=== PATIENT | female | born 1935 | race Caucasian/White ===

== ENCOUNTER → 2017-09-11 | Outpatient (CLI) | payer MEDICARE, BC ==
--- NOTE | 2017-09-15 08:26 | MM ---
Reason for exam: screening (asymptomatic). Last mammogram was performed 1 year ago. History: Patient is postmenopausal and has history of ovarian cancer at age 42. Right Breast Aspiration of the right breast, April 23, 2013. Benign excisional biopsy of the left breast, 1977. Physical Findings: A clinical breast exam by your physician is recommended on an annual basis and results should be correlated with mammographic findings. MG 3D Screening Mammo W/Cad Bilateral CC and MLO view(s) were taken. Prior study comparison: September 09, 2016, bilateral MG 3d screening mammo w/cad. September 05, 2015, bilateral MG screening mammo w CAD. The breast tissue is heterogeneously dense. This may lower the sensitivity of mammography. Previous mammotome biopsy in the right breast. No significant changes when compared with prior studies. ASSESSMENT: Benign, BI-RAD 2 RECOMMENDATION: Routine screening mammogram of both breasts in 1 year.
== END | disposition home or self-care (01) ==
LOC: RADMAMWWP 12:59
PROVIDERS: ATTEND Family Medicine
DX: Z12.31 Encounter for screening mammogram for malignant neoplasm of breast (principal)
CPT/HCPCS: 77063; G0202

== ENCOUNTER → 2018-09-14 | Outpatient (CLI) | payer MEDICARE, BC ==
--- NOTE | 2018-09-16 09:53 | MM ---
Reason for exam: screening (asymptomatic). Last mammogram was performed 1 year ago. History: Patient is postmenopausal and has history of ovarian cancer at age 42. Right Breast Aspiration of the right breast, April 23, 2013. Benign excisional biopsy of the left breast, 1977. Physical Findings: A clinical breast exam by your physician is recommended on an annual basis and results should be correlated with mammographic findings. MG 3D Screening Mammo W/Cad Bilateral CC and MLO view(s) were taken. Prior study comparison: September 11, 2017, bilateral MG 3d screening mammo w/cad. September 09, 2016, bilateral MG 3d screening mammo w/cad. The breast tissue is heterogeneously dense. This may lower the sensitivity of mammography. There is a stable left upper outer quadrant mass back to 2016. Benign appearing bilateral calcifications. Right biopsy marker noted. ASSESSMENT: Benign, BI-RAD 2 RECOMMENDATION: Routine screening mammogram of both breasts in 1 year.
== END | disposition home or self-care (01) ==
LOC: RADMAMWWP 12:38
PROVIDERS: ATTEND Family Medicine
DX: Z12.31 Encounter for screening mammogram for malignant neoplasm of breast (principal)
CPT/HCPCS: 77063; 77067

== ENCOUNTER 2022-12-20 09:30 | Emergency (ER) | payer MEDICARE, BC ==
[2022-12-20 09:36] VITALS: RESP 18
[2022-12-20] MEDS ORDERED: diphenhydrAMINE 50 MG/ML 1 ML VIAL IVP STA (10:22)
[2022-12-20] MEDS ORDERED: methylPREDNISolone SOD SUCCI 125 MG/2 ML VIAL IV STA (10:22)
[2022-12-20] MEDS ORDERED: FAMOTIDINE 20 MG/2 ML VIAL IV STA (10:22)
[2022-12-20 10:24] LABS: Amorphous Sediment,Urine Rare /hpf; Appearance,Urine Cloudy (Clear); Bacteria,Urine Rare /hpf; Bilirubin,Urine Negative (Negative); Blood,Urine Small (Negative); Color,Urine Light Yellow; Glucose,Urine (UA) Negative (Negative); Ketones,Urine Negative (Negative); Leukocyte Esterase,Urine Large (Negative); Mucus,Urine Rare /hpf; Nitrite,Urine Negative (Negative); PH, Urine 6.5 (5.0-8.0); Protein,Urine Trace (Negative); RBC,Urine 47 /hpf (0-5); Specific Gravity,Urine 1.014 (1.001-1.035); Squamous Epithelial Cell,Urine <1 /hpf (0-4); Urobilinogen,Urine <2.0 mg/dL (<2.0); WBC,Urine 59 /hpf (0-5)
[2022-12-20] MEDS ORDERED: TRIAMCINOLONE 0.1% CREAM 80 GM TUBE TOPICAL ONE (10:30)
--- NOTE | 2022-12-20 10:37 | ED ---
Recheck HPI - General Chief Complaint: Urogenital Stated Complaint: painful urination, back pain Time Seen by Provider: 12/20/22 09:56 Source: patient, RN notes reviewed Mode of arrival: ambulatory Limitations: no limitations - History of Present Illness Initial Comments: This is a 87-year-old female who presents to the emergency department for itching and burning with urination. States that starting yesterday, she has noticed significant itching to her back and her head. She is unable to see her back. She has tried washing it with no relief. Denies any new soaps or detergents. Also denies the concern for any bedbugs. She lives at [facility], and states that there have not been any noted infestations. Also denies any new soaps or detergents. She has not taken anything such as Benadryl to treat her symptoms. Additionally, she noticed blood in her urine last night which has since resolved and she has associated burning with urination. Denies any abdominal pain or back pain. She has also not noted any fevers. Denies any fevers, chills, sore throat, cough, dyspnea, chest pain, palpitations, abdominal pain, nausea, vomiting, diarrhea, back pain, or headaches. - Related Data Home Medications Medication Instructions Recorded Confirmed Latanoprost [Latanoprost 0.005%] 1 drop BOTH EYES HS 12/20/22 12/20/22 Levothyroxine Sodium [Synthroid] 50 mcg PO DAILY 12/20/22 12/20/22 Previous Rx's Medication Instructions Recorded Cephalexin [Keflex] 500 mg PO Q8HR 7 Days #21 cap 12/20/22 predniSONE 50 mg PO DAILY 5 Days #5 tab 12/20/22 Allergies Allergy/AdvReac Type Severity Reaction Status Date / Time oxycodone HCl Allergy Itching Verified 12/20/22 11:44 [From OxyContin] Penicillins Allergy Unknown Verified 12/20/22 11:44 Review of Systems ROS Statement: Those systems with pertinent positive or pertinent negative responses have been documented in the HPI. ROS Other: All systems not noted in ROS Statement are negative. 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 Absent: respiratory distress, wheezes, rales, rhonchi, stridor Cardiovascular Exam: Present: regular rate, normal rhythm, normal heart sounds. Absent: systolic murmur, diastolic murmur, rubs, gallop, clicks GI/Abdominal exam: Present: soft, normal bowel sounds. Absent: distended, tenderness Neurological exam: Present: alert, oriented X3, CN II-XII intact Psychiatric exam: Present: normal affect, normal mood Skin exam: Present: other (Multiple excoriated papular lesions on the back. No notable lesions on the head, neck, or behind the ears.) Course Vital Signs 12/20/22 12/20/22 09:31 12:30 Temperature 97.5 F L 97.9 F Pulse Rate 65 66 Respiratory 18 18 Rate Blood Pressure 170/65 158/72 O2 Sat by Pulse 99 100 Oximetry Medical Decision Making - Medical Decision Making This is an 87-year-old female who presents to the emergency department for itching and dysuria. Was pt. sent in by a medical professional or institution? @ -No Did you speak to anyone other than the patient for history? @ -No Did you review nursing and triage notes? @ -Yes, and I agree, it is accurate with regards to the patient's symptoms. Were old charts reviewed? @ -No Differential Diagnosis? @ -Differential Itching: insect bites, atopic dermatitis, contact dermatitis, herpes zoster, this is not meant to be an all-inclusive list. -Differential Dysuria: UTI, pyelonephritis, ureteral calculus, nephrolithiasis, urethral injury, bladde r cancer, this is not meant to be an all-inclusive list. What testing was considered but not performed? (CT, X-rays, U/S, labs)? Why? @ -None What meds were considered but not given? Why? @ -None Did you discuss the management of the patient with other professionals? @ -No Did you reconcile home meds? @ -No Was smoking cessation discussed for >3mins.? @ -No Was critical care preformed (if so, how long)? @ -No Were there social determinants of health that impacted care today? How? (Homelessness, low income, unemployed, alcoholism, drug addiction, tr ansportation, low edu. Level, literacy, decrease access to med. care, usp, rehab)? @ -No Was there de-escalation of care discussed even if they declined? (Discuss DNR or withdrawal of care, Hospice)? @ -No What co-morbidities impacted this encounter? (DM, HTN, Smoking, COPD, CAD, Cancer, CVA, Hep., AIDS, mental health diagnosis, sleep apnea, morbid obesity)? @ -None Was patient admitted / discharged? @ -Discharged. Patient given IV Solu-Medrol, Benadryl, and Pepcid. She then had topical triamcinolone cream applied to the back. She had minor improvement in symptoms, but states that she was still very bothered by the itching. She was subsequently given a dose of Atarax. Advised that we are not always able to tell what caused the rash, in which case we cannot be sure how long it'll take for it to start improving. Rx for 5 day course of prednisone provided with dosing instructions reviewed. Advised she continue with [id number] Pepcid and Benadryl or an alternative antihistamine help with the itching. Information for dermatology follow-up provided, advised she contact them for an appointment and further evaluation of the rash. Urinalysis consistent with infection. She was given a dose of ceftriaxone in the emergency department and a prescription for Keflex was provided. Undiagnosed new problem with uncertain prognosis? @ -Rash Drug Therapy requiring intensive monitoring for toxicity (Heparin, Nitro, Insulin, Cardizem)? @ -None Were any procedures done? @ -None Diagnosis/symptom? @ -Rash Acute, or Chronic, or Acute on Chronic? @ -Acute Uncomplicated (without systemic symptoms) or Complicated (systemic symptoms)? @ -Uncomplicated Side effects of treatment? @ -None Exacerbation, Progression, or Severe Exacerbation] @ -Not applicable Poses a threat to life or bodily function? @ -No Diagnosis/symptom? @ -UTI Acute, or Chronic, or Acute on Chronic? @ -Acute Uncomplicated (without systemic symptoms) or Complicated (systemic symptoms)? @ -Uncomplicated Side effects of treatment? @ -None Exacerbation, Progression, or Severe Exacerbation] @ -Not applicable Poses a threat to life or bodily function? @ -No Return precautions reviewed in depth, the patient is instructed to return to the emergency department with any new, worsening, or concerning symptoms. Patient verbalized understanding. This case was discussed in detail with the attending ED physician, Dr. Hayes. Presentation, findings, and treatment plan discussed in detail as well. - Lab Data Lab Results 12/20/22 Range/Units 10:04 Urine Color Light Yellow Urine Appearance Cloudy H (Clear) Urine pH 6.5 (5.0-8.0) Ur Specific [place] 1.014 (1.001-1.035) Urine Protein Trace H (Negative) Urine Glucose (UA) Negative (Negative) Urine Ketones Negative (Negative) Urine Blood Small H (Negative) Urine Nitrite Negative (Negative) Urine Bilirubin Negative (Negative) Urine Urobilinogen <2.0 (<2.0) mg/dL Ur Leukocyte Esterase Large H (Negative) Urine RBC 47 H (0-5) /hpf Urine WBC 59 H (0-5) /hpf Ur Squamous Epith Cells <1 (0-4) /hpf Amorphous Sediment Rare H (None) /hpf Urine Bacteria Rare H (None) /hpf Urine Mucus Rare H (None) /hpf Disposition Clinical Impression: Urinary tract infection, Dermatitis Disposition: HOME SELF-CARE Instructions (If sedation given, give patient instructions): Urinary Tract Infection in Women (ED), Acute Rash (ED) Additional Instructions: Return to the emergency department with any new, worsening, or concerning symptoms. Take the antibiotic as prescribed for 7 days to treat the urinary tract infection. Take your first dose tomorrow because you already received an antibiotic today. Take the prednisone daily for 5 days. You can also take another [id number] antihistamine such as Benadryl to help with the itching, however be aware that it may be sedating. Additionally, the cream that you were provided here can be used 3-4 times daily. Do not apply this to the face. Follow up with your primary care provider in 1-2 days. You can contact the disease case manager rn as listed below for a follow-up appointment and further evaluation of the rash. Prescriptions: Cephalexin [Keflex] 500 mg PO Q8HR 7 Days #21 cap predniSONE 50 mg PO DAILY 5 Days #5 tab Is patient prescribed a controlled substance at d/c from ED?: No Referrals: Olga Cruz [Primary Care Provider] - 1-2 days Lynn Harvey MD [STAFF PHYSICIAN] - 1-2 days
[2022-12-20] MEDS ORDERED: cefTRIAXone IN SWFI 1,000 MG/10 ML SYRINGE IVP STA (11:07)
[2022-12-20] MEDS ORDERED: hydrOXYzine HCL 25 MG TAB PO STA (11:43)
[2022-12-20 12:33] VITALS: BP 158/72; PULSE 66; TEMP 97.9
== END 2022-12-20 12:33 | disposition home or self-care (01) ==
LOC: EC 09:30
DX: N39.0 Urinary tract infection, site not specified (principal); L30.9 Dermatitis, unspecified; E07.9 Disorder of thyroid, unspecified; Z79.890 Hormone replacement therapy; Z88.0 Allergy status to penicillin; Z88.5 Allergy status to narcotic agent
CPT/HCPCS: 81001; 87086; 99283; 96374; 96375 ×3; J1200; J2930; J0696

== ENCOUNTER 2023-05-20 12:15 | Emergency (ER) | payer MEDICARE, BC ==
[2023-05-20 12:21] VITALS: TEMP 98.7
[2023-05-20] MEDS ORDERED: SODIUM CHLORIDE 0.9% 500 ML 500 ML IV STA (12:45)
--- NOTE | 2023-05-20 12:51 | ED ---
General Adult HPI - General Chief complaint: Abdominal Pain Stated complaint: urogenital, nausea Time Seen by Provider: 05/20/23 12:20 Source: patient, RN notes reviewed, old records reviewed Mode of arrival: ambulatory Limitations: no limitations - History of Present Illness Initial comments: This is an 88-year-old female who presents emergency Department complaining of lower abdominal pain. Patient states she was here 4 months ago and the pain is been intermittent since then but mostly gone until about a week ago. Patient states the pain is returned and it is in the lower abdomen and she feels as though her lower abdomen is distended. Patient states she is having bowel movements but she thinks they are black or at least very dark which she states happens quite often her whole life. Patient denies any diarrhea patient denies any nausea vomiting. Patient denies any change in her eating habits. Patient denies any fever chills. - Related Data Home Medications Medication Instructions Recorded Confirmed Latanoprost [Latanoprost 0.005%] 1 drop BOTH EYES HS 12/20/22 05/20/23 Levothyroxine Sodium [Synthroid] 50 mcg PO DAILY 12/20/22 05/20/23 Previous Rx's Medication Instructions Recorded Nitrofurantoin Monohyd/M-Cryst 100 mg PO Q12HR #14 cap 05/20/23 [Macrobid] Allergies Allergy/AdvReac Type Severity Reaction Status Date / Time oxycodone HCl Allergy Itching Verified 05/20/23 14:47 [From OxyContin] Penicillins Allergy Unknown Verified 05/20/23 14:47 Review of Systems ROS Statement: Those systems with pertinent positive or pertinent negative responses have been documented in the HPI. ROS Other: All systems not noted in ROS Statement are negative. 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 Patient is nontoxic and well- hydrated and is in no acute distress. ENT: Neck is soft and supple. No significant lymphadenopathy is noted. Oropharynx is clear. Moist mucous membranes. Neck has full range of motion without eliciting any pain. EYES: The sclera were anicteric and conjunctiva were pink and moist. Extraocular movements were intact and pupils were equal round and reactive to light. Eyelids were unremarkable. PULMONARY: Unlabored respirations. Good breath sounds bilaterally. No audible rales rhonchi or wheezing was noted. CARDIOVASCULAR: There is a regular rate and rhythm without any murmurs gallops or rubs. ABDOMEN: During minimal suprapubic abdominal tenderness SKIN: Skin is clear with no lesions or rashes and otherwise unremarkable. NEUROLOGIC: Patient is alert and oriented x3. Cranial nerves II through XII are grossly intact. Motor and sensory are also intact. Normal speech, volume and content. Symmetrical smile. MUSCULOSKELETAL: Normal extremities with adequate strength and full range of motion. LYMPHATICS: No significant lymphadenopathy is noted PSYCHIATRIC: Normal psychiatric evaluation. Limitations: no limitations Course Vital Signs 05/20/23 05/20/23 12:18 15:11 Temperature 98.7 F Pulse Rate 65 68 Respiratory 16 18 Rate Blood Pressure 159/69 150/80 O2 Sat by Pulse 96 99 Oximetry Medical Decision Making - Medical Decision Making Was pt. sent in by a medical professional or institution (, PA, SCREENING TECHNICIAN, urgent care, hospital, or senior care...) When possible be specific @ -No Did you speak to anyone other than the patient for history (EMS, parent, family, police, friend...)? What history was obtained from this source @ -No Did you review nursing and triage notes (agree or disagree)? Why? @ -I reviewed and agree with nursing and triage notes Were old charts reviewed (outside hosp., previous admission, EMS record, old EKG, old radiological studies, urgent care reports/EKG's, senior care records)? Report findings @ -I reviewed prior charts prior lab work on this patient. Differential Diagnosis (chest pain, altered mental status, abdominal pain women, abdominal pain men, vaginal bleeding, weakness, fever, dyspnea, syncope, headache, dizziness, GI bleed, back pain, seizure, CVA, palpatations, mental health, musculoskeletal)? @ -Differential Abdominal Pain Women: Appendicitis, Cholecystitis, diverticulosis, ischemic bowel, pancreatitis, hepatitis, UTI, gastroenteritis, AAA, incarcerated hernia, bowel obstruction, constipation, inflammatory bowel, hepatitis, peptic ulcer disease, splenic infarction, perforated viscus, vulvitis, ovarian torsion, PID, kidney stone, placenta abruption, this is not meant to be an all-inclusive list EKG interpreted by me (3pts min.). @ -As above X-rays interpreted by me (1pt min.). @ -None done CT interpreted by me (1pt min.). @ -The abdomen and pelvis shows some stranding around the pelvis and the right kidney indicative of infection. U/S interpreted by me (1pt. min.). @ -None done What testing was considered but not performed or refused? (CT, X-rays, U/S, labs)? Why? @ -None What meds were considered but not given or refused? Why? @ -None Did you discuss the management of the patient with other professionals (professionals i.e. , PA, SCREENING TECHNICIAN, lab, RT, psych nurse, social welfare administrator, vamp liner, teacher, sheriff officer, case worker)? Give summary @ -No Was smoking cessation discussed for >3mins.? @ -No Was critical care preformed (if so, how long)? @ -No Were there social determinants of health that impacted care today? How? (Homelessness, low income, unemployed, alcoholism, drug addiction, transportation, low edu. Level, literacy, decrease access to med. care, snf, r ehab)? @ -No Was there de-escalation of care discussed even if they declined (Discuss DNR or withdrawal of care, Hospice)? DNR status @ -No What co-morbidities impacted this encounter? (DM, HTN, Smoking, COPD, CAD, Cancer, CVA, ARF, Chemo, Hep., AIDS, mental health diagnosis, sleep apnea, morbid obesity)? @ -None Was patient admitted / discharged? Hospital course, mention meds given and route, prescriptions, significant lab abnormalities, going to OR and other pertinent info. @ -I spoke to the patient about having a urinary tract infection I gave her antibiotics here and indicated that we could keep her and continue giving antibiotics but the patient refused she stated she would be fine at home Undiagnosed new problem with uncertain prognosis? @ -No Drug Therapy requiring intensive monitoring for toxicity (Heparin, Nitro, Insulin, Cardizem)? @ -No Were any procedures done? @ -No Diagnosis/symptom? @ -Urinary tract infection Acute, or Chronic, or Acute on Chronic? @ -Acute Uncomplicated (without systemic symptoms) or Complicated (systemic symptoms)? @ -Complicated Side effects of treatment? @ -No Exacerbation, Progression, or Severe Exacerbation? @ -No Poses a threat to life or bodily function? How? (Chest pain, [place], [place], pneumonia, PE, COPD, DKA, ARF, appy, cholecystitis, CVA, Diverticulitis, Homicidal, Suicidal, threat to staff... and all critical care pts) @ -No - Lab Data Result diagrams: 05/20/23 12:57 05/20/23 12:57 Lab Results 05/20/23 05/20/23 05/20/23 Range/Units 12:57 12:57 12:57 WBC 7.7 (3.8-10.6) k/uL RBC 4.96 (3.80-5.40) m/uL Hgb 15.1 (11.4-16.0) gm/dL Hct 45.9 (34.0-46.0) % MCV 92.6 (80.0-100.0) fL MCH 30.5 (25.0-35.0) pg MCHC 32.9 (31.0-37.0) g/dL RDW 12.7 (11.5-15.5) % Plt Count 290 (150-450) k/uL MPV 6.8 Neutrophils % 71 % Lymphocytes % 21 % Monocytes % 5 % Eosinophils % 1 % Basophils % 1 % Neutrophils # 5.5 (1.3-7.7) k/uL Lymphocytes # 1.6 (1.0-4.8) k/uL Monocytes # 0.4 (0-1.0) k/uL Eosinophils # 0.1 (0-0.7) k/uL Basophils # 0.1 (0-0.2) k/uL Sodium 137 (137-145) mmol/L Potassium 4.3 (3.5-5.1) mmol/L Chloride 102 (98-107) mmol/L Carbon Dioxide 28 (22-30) mmol/L Anion Gap 7 mmol/L BUN 21 H (7-17) mg/dL Creatinine 0.72 (0.52-1.04) mg/dL Est GFR (CKD-EPI)AfAm 88 (>60 ml/min/1.73 sqM) Est GFR (CKD-EPI)NonAf 76 (>60 ml/min/1.73 sqM) Glucose 95 (74-99) mg/dL Plasma Lactic Acid Rony 0.8 (0.7-2.0) mmol/L Calcium 9.3 (8.4-10.2) mg/dL Total Bilirubin 0.5 (0.2-1.3) mg/dL AST 28 (14-36) U/L ALT 15 (4-34) U/L Alkaline Phosphatase 87 (38-126) U/L Total Protein 6.8 (6.3-8.2) g/dL Albumin 4.1 (3.5-5.0) g/dL Amylase 62 (30-110) U/L Lipase 189 (23-300) U/L Urine Color Urine Appearance (Clear) Urine pH (5.0-8.0) Ur Specific [place] (1.001-1.035) Urine Protein (Negative) Urine Glucose (UA) (Negative) Urine Ketones (Negative) Urine Blood (Negative) Urine Nitrite (Negative) Urine Bilirubin (Negative) Urine Urobilinogen (<2.0) mg/dL Ur Leukocyte Esterase (Negative) Urine RBC (0-5) /hpf Urine WBC (0-5) /hpf Urine Mucus (None) /hpf 05/20/23 Range/Units 12:57 WBC (3.8-10.6) k/uL RBC (3.80-5.40) m/uL Hgb (11.4-16.0) gm/dL Hct (34.0-46.0) % MCV (80.0-100.0) fL MCH (25.0-35.0) pg MCHC (31.0-37.0) g/dL RDW (11.5-15.5) % Plt Count (150-450) k/uL MPV Neutrophils % % Lymphocytes % % Monocytes % % Eosinophils % % Basophils % % Neutrophils # (1.3-7.7) k/uL Lymphocytes # (1.0-4.8) k/uL Monocytes # (0-1.0) k/uL Eosinophils # (0-0.7) k/uL Basophils # (0-0.2) k/uL Sodium (137-145) mmol/L Potassium (3.5-5.1) mmol/L Chloride (98-107) mmol/L Carbon Dioxide (22-30) mmol/L Anion Gap mmol/L BUN (7-17) mg/dL Creatinine (0.52-1.04) mg/dL Est GFR (CKD-EPI)AfAm (>60 ml/min/1.73 sqM) Est GFR (CKD-EPI)NonAf (>60 ml/min/1.73 sqM) Glucose (74-99) mg/dL Plasma Lactic Acid Rony (0.7-2.0) mmol/L Calcium (8.4-10.2) mg/dL Total Bilirubin (0.2-1.3) mg/dL AST (14-36) U/L ALT (4-34) U/L Alkaline Phosphatase (38-126) U/L Total Protein (6.3-8.2) g/dL Albumin (3.5-5.0) g/dL Amylase (30-110) U/L Lipase (23-300) U/L Urine Color Yellow Urine Appearance Clear (Clear) Urine pH 5.0 (5.0-8.0) Ur Specific [place] 1.015 (1.001-1.035) Urine Protein Trace H (Negative) Urine Glucose (UA) Negative (Negative) Urine Ketones 1+ H (Negative) Urine Blood Moderate H (Negative) Urine Nitrite Negative (Negative) Urine Bilirubin Negative (Negative) Urine Urobilinogen <2.0 (<2.0) mg/dL Ur Leukocyte Esterase Large H (Negative) Urine RBC 80 H (0-5) /hpf Urine WBC 59 H (0-5) /hpf Urine Mucus Rare H (None) /hpf Disposition Clinical Impression: Urinary tract infection Disposition: HOME SELF-CARE Condition: Good Instructions (If sedation given, give patient instructions): Urinary Tract Infection in Women (ED) Prescriptions: Nitrofurantoin Monohyd/M-Cryst [Macrobid] 100 mg PO Q12HR #14 cap Is patient prescribed a controlled substance at d/c from ED?: No Referrals: Olga Cruz [Primary Care Provider] - 1-2 days Time of Disposition: 16:51
[2023-05-20 14:14] LABS: Basophils # (A) 0.1 k/uL (0-0.2); Basophils % (A) 1 %; Eosinophils # (A) 0.1 k/uL (0-0.7); Eosinophils % (A) 1 %; HCT 45.9 % (34.0-46.0); HGB 15.1 gm/dL (11.4-16.0); Lymphocytes # (A) 1.6 k/uL (1.0-4.8); Lymphocytes % (A) 21 %; MCH 30.5 pg (25.0-35.0); MCHC 32.9 g/dL (31.0-37.0); MCV 92.6 fL (80.0-100.0); Mean Platelet Volume 6.8; Monocytes # (A) 0.4 k/uL (0-1.0); Monocytes % (A) 5 %; Neutrophils # (A) 5.5 k/uL (1.3-7.7); Neutrophils % (A) 71 %; Platelet Count 290 k/uL (150-450); RBC 4.96 m/uL (3.80-5.40); RDW 12.7 % (11.5-15.5); WBC 7.7 k/uL (3.8-10.6)
[2023-05-20 14:30] LABS: ALT 15 U/L (4-34); AST 28 U/L (14-36); African American GFR (CKD) 88 (>60 ml/min/1.73 sqM); Albumin 4.1 g/dL (3.5-5.0); Alkaline Phosphatase 87 U/L (38-126); Amylase 62 U/L (30-110); Anion Gap 7 mmol/L; Blood Urea Nitrogen 21 mg/dL (7-17); Calcium 9.3 mg/dL (8.4-10.2); Carbon Dioxide 28 mmol/L (22-30); Chloride 102 mmol/L (98-107); Glucose 95 mg/dL (74-99); Lipase 189 U/L (23-300); Non-African American GFR(CKD) 76 (>60 ml/min/1.73 sqM); Potassium 4.3 mmol/L (3.5-5.1); Sodium 137 mmol/L (137-145); Total Bilirubin 0.5 mg/dL (0.2-1.3); Total Protein 6.8 g/dL (6.3-8.2)
[2023-05-20 15:01] LABS: Appearance,Urine Clear (Clear); Bilirubin,Urine Negative (Negative); Blood,Urine Moderate (Negative); Color,Urine Yellow; Glucose,Urine (UA) Negative (Negative); Ketones,Urine 1+ (Negative); Leukocyte Esterase,Urine Large (Negative); Mucus,Urine Rare /hpf; Nitrite,Urine Negative (Negative); Protein,Urine Trace (Negative); RBC,Urine 80 /hpf (0-5); Specific Gravity,Urine 1.015 (1.001-1.035); Urobilinogen,Urine <2.0 mg/dL (<2.0); WBC,Urine 59 /hpf (0-5)
--- NOTE | 2023-05-20 15:44 | CT ---
EXAMINATION TYPE: CT abdomen pelvis wo con DATE OF EXAM: 05/20/2023 HISTORY: weakness, general and lower abdominal pain CT DLP: 362.1 mGycm. Automated Exposure Control for Dose Reduction was Utilized. TECHNIQUE: CT scan of the abdomen and pelvis is performed without oral or IV contrast. COMPARISON: NONE FINDINGS: Within the limitations of a non-contrast study, the following observations are made. LUNG BASES: Cardiomegaly is present. Coronary artery calcification is seen which is noted marked with underlying coronary artery disease. Tiny pericardial effusion is present. LIVER/GB: Cholecystectomy clips are seen. PANCREAS: Pancreatic duct is mildly dilated up to 4 mm in the proximal body coronal image 34 correspo nding to axial image 42. No obvious obstructing mass is seen on noncontrast CT. SPLEEN: No significant abnormality is seen. ADRENALS: Slight low dense thickening to left adrenal gland favors benign lipid rich hyperplasia. KIDNEYS: There is 8 mm calculus upper pole left kidney coronal image 67. There is fullness of left re nal pelvis with less prominent calyceal fullness. There is no hydroureter or obstructing ureteral gavin culi clearly seen. Right kidney has 1.5 cm calculus lower pole level coronal image 50. There is fullness of right renal pelvis without significant calyceal dilatation. There is upkd-lb-efiuiueo right-sided proximal hydrou reter. There is ill-defined fluid and fat stranding surrounding the right renal pelvis extending into the proximal right ureter. No intraluminal calculi in the bladder. Scattered pelvic phleboliths bilaterally. No definitive dista l ureter calculi. BOWEL: Slightly suboptimal evaluation without enteric contrast. No suspicious small or large bowel di latation. Scattered colonic diverticula with most prominent diverticulosis involving the sigmoid colo n in the pelvis.. GENITAL ORGANS: Uterus surgically absent or markedly atrophic. Small amount of free fluid in the pelv is greater than right of midline axial image 103. LYMPH NODES: No greater than 1cm abdominal or pelvic lymph nodes are appreciated. OSSEOUS STRUCTURES: Levoconvex scoliosis centered at L2-L3 level. Multilevel spurring in the thoracol umbar spine. Vacuum disc phenomenon with mild to moderate disc space narrowing L2-L3, L3-L4, and L5-S 1 levels. Slight grade 1 anterolisthesis L4 on L5. 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 OTHER: [id number] calcified plaque of the aorta extends into branch vessels. IMPRESSION: 1. Bilateral nephrolithiasis. Mild left-sided hydronephrosis. Focal fluid and fat stranding near prom inent right renal pelvis and proximal ureter is nonspecific but raises concern for renal infection. C valentinaelate clinically. 2. Scattered colonic diverticula with most prominent diverticulosis in the sigmoid colon. No convinci ng CT evidence for acute diverticulitis.
[2023-05-20] MEDS ORDERED: cefTRIAXone IN SWFI 1,000 MG/10 ML SYRINGE IVP STA (16:33)
[2023-05-20 17:13] VITALS: BP 107/74; PULSE 74; RESP 16
== END 2023-05-20 17:13 | disposition home or self-care (01) ==
LOC: EC 12:15
DX: N39.0 Urinary tract infection, site not specified (principal); K57.30 Diverticulosis of large intestine without perforation or abscess without bleeding; N13.6 Pyonephrosis; E07.9 Disorder of thyroid, unspecified; Z79.890 Hormone replacement therapy; Z88.0 Allergy status to penicillin; Z88.5 Allergy status to narcotic agent
CPT/HCPCS: 36415; 80053; 82150; 83605; 83690; 85025; 81001; 87086; 74176; 99284; 96374; J0696

== ENCOUNTER 2025-03-20 15:08 | Emergency (ER) | payer MEDICARE, BC ==
--- NOTE | 2025-03-20 15:31 | ED ---
General Adult HPI - General Chief complaint: Extremity Injury, Upper Stated complaint: Wrist injury Time Seen by Provider: 03/20/25 15:11 Source: patient, family, RN notes reviewed Mode of arrival: ambulatory Limitations: no limitations - History of Present Illness Initial comments: Patient is an 89-year-old female present to the emergency department with right wrist injury. Injury occurred 2 days ago. Daughter noticed yesterday evening that it was swollen and took patient to urgent care today. Patient had x-rays and was splinted and was advised to come the emergency department. Patient complains of discomfort in this area. No other area of injury or concern. - Related Data Home Medications Medication Instructions Recorded Confirmed Latanoprost [Latanoprost 0.005%] 1 drop BOTH EYES HS 12/20/22 05/20/23 Levothyroxine Sodium [Synthroid] 50 mcg PO DAILY 12/20/22 05/20/23 Previous Rx's Medication Instructions Recorded Nitrofurantoin Monohyd/M-Cryst 100 mg PO Q12HR #14 cap 05/20/23 [Macrobid] Allergies Allergy/AdvReac Type Severity Reaction Status Date / Time oxycodone HCl Allergy Itching Verified 05/20/23 14:47 [From OxyContin] Penicillins Allergy Unknown Verified 05/20/23 14:47 Review of Systems ROS Statement: Those systems with pertinent positive or pertinent negative responses have been documented in the HPI. ROS Other: All systems not noted in ROS Statement are negative. Constitutional: Denies: fever Eyes: Denies: eye pain ENT: Denies: ear pain Respiratory: Denies: cough Cardiovascular: Denies: chest pain Endocrine: Denies: fatigue Gastrointestinal: Denies: abdominal pain Musculoskeletal: Reports: as per HPI Past Medical History Past Medical History: Thyroid Disorder Additional Past Medical History / Comment(s): Blind,[place] History of Any Multi-Drug Resistant Organisms: None Reported Additional Past Surgical History / Comment(s): Ovarian, Thyroid Past Psychological History: No Psychological Hx Reported Smoking Status: Never smoker Past Alcohol Use History: None Reported Past Drug Use History: None Reported General Exam Limitations: no limitations General appearance: alert, in no apparent distress Head exam: Present: normocephalic Eye exam: Present: normal appearance Neck exam: Present: normal inspection. Absent: tenderness Respiratory exam: Present: normal lung sounds bilaterally Cardiovascular Exam: Present: regular rate, normal rhythm Expanded Peripheral pulses: 2+: Radial (R) GI/Abdominal exam: Present: soft. Absent: tenderness Extremities exam: Present: tenderness (Right distal radius tenderness. Distal hand is mildly ecchymotic and moderately swollen. No hand tenderness. Full range of motion of fingers. No fusiform swelling. Sensation intact.) Back exam: Present: normal inspection Neurological exam: Present: alert. Absent: motor sensory deficit Psychiatric exam: Present: normal affect, normal mood Skin exam: Present: other (Some ecchymosis of the hand) Course Vital Signs 03/20/25 03/20/25 15:12 15:39 Temperature 97.6 F Pulse Rate 66 Respiratory 16 Rate Blood Pressure 153/67 150/65 O2 Sat by Pulse 99 Oximetry Medical Decision Making - Medical Decision Making Was pt. sent in by a medical professional or institution (, PA, DIRECTOR AER[employer]AUT[employer] COMMISSION, urgent care, hospital, or [facility]...) When possible be specific @ -Patient was sent from urgent care Did you speak to anyone other than the patient for history (EMS, parent, family, police, friend...)? What history was obtained from this source @ -Daughter is present and provides history as patient is a poor historian Did you review nursing and triage notes (agree or disagree)? Why? @ -I reviewed and agree with nursing and triage notes Were old charts reviewed (outside hosp., previous admission, EMS record, old EKG, old radiological studies, urgent care reports/EKG's, [facility] records)? Report findings @ -X-ray reviewed from urgent care Differential Diagnosis (chest pain, altered mental status, abdominal pain women, abdominal pain men, vaginal bleeding, weakness, fever, dyspnea, syncope, headache, dizziness, GI bleed, back pain, seizure, CVA, palpatations, mental health, musculoskeletal)? @ -Differential Musculoskeletal Muscular strain, contusion, ligament sprain, fracture, arthritis, septic arthritis, bursitis, cellulitis, muscle spasm, nerve compression, DVT, arterial occlusion, herpes zoster, electrolyte abnormality, tumor.... This is not meant to be in all inclusive list EKG interpreted by me (3pts min.). @ -As above X-rays interpreted by me (1pt min.). @ -Right wrist x-ray from urgent care does show distal radius fracture with bayoneting CT interpreted by me (1pt min.). @ -None done U/S interpreted by me (1pt. min.). @ -None done What testing was considered but not performed or refused? (CT, X-rays, U/S, labs)? Why? @ -None What meds were considered but not given or refused? Why? @ -None Did you discuss the management of the patient with other professionals (professionals i.e. Dr., PA, DIRECT[employer], lab, RT, psych nurse, social insurance specialist, reference investigator, teacher, senior escrow officer, bottle caser)? Give summary @ -Case was discussed with Dr. Sanchez who will follow-up with patient in the office this week Was smoking cessation discussed for >3mins.? @ -No Was critical care preformed (if so, how long)? @ -No Were there social determinants of health that impacted care today? How? (Homelessness, low income, unemployed, alcoholism, drug addiction, transportation, low edu. Level, literacy, decrease access to med. care, long term, rehab)? @ -No Was there de-escalation of care discussed even if they declined (Discuss DNR or withdrawal of care, Hospice)? DNR status @ -No What co-morbidities impacted this encounter? (DM, HTN, Smoking, COPD, CAD, Cancer, CVA, ARF, Chemo, Hep., AIDS, mental health diagnosis, sleep apnea, morbid obesity)? @ -None Was patient admitted / discharged? Hospital course, mention meds given and route, prescriptions, significant lab abnormalities, going to OR and other pertinent info. @ -89 female presents with fall and distal radius fracture 2 days ago. Distal radius fracture on x-ray. I do not feel I will be able to get this fracture appropriately aligned in the emergency department. Patient will follow-up with orthopedics. Patient and family updated Undiagnosed new problem with uncertain prognosis? @ -No Drug Therapy requiring intensive monitoring for toxicity (Heparin, Nitro, Insulin, Cardizem)? @ -No Were any procedures done? @ -No Diagnosis/symptom? @ -Distal radius fracture Acute, or Chronic, or Acute on Chronic? @ -Acute Uncomplicated (without systemic symptoms) or Complicated (systemic symptoms)? @ -Default Side effects of treatment? @ -No Exacerbation, Progression, or Severe Exacerbation? @ -No Poses a threat to life or bodily function? How? (Chest pain, [place], [place], pneumonia, PE, COPD, DKA, ARF, appy, cholecystitis, CVA, Diverticulitis, Homicidal, Crow icidal, threat to staff... and all critical care pts) @ -No Disposition Clinical Impression: Distal radius fracture Disposition: HOME SELF-CARE Condition: Stable Instructions (If sedation given, give patient instructions): Arm Fracture in Adults (ED) Additional Instructions: Rapk-qby-[id number] Tylenol or Motrin if needed. Please do follow-up with orthopedics beginning of the week, number provided. Ice to affected area. Return for increased pain, swelling, hand problems, worsening symptoms or other concerns. Is patient prescribed a controlled substance at d/c from ED?: No Referrals: Olga Cruz [Primary Care Provider] - 1-2 days Ej Sanchez MD [STAFF PHYSICIAN] - 1-2 days Time of Disposition: 17:04
[2025-03-20] MEDS: Acetaminophen-Codeine 300-30mg TAB PO STA (17:17)
[2025-03-20 17:37] VITALS: BP 148/78; PULSE 68; RESP 20; TEMP 98
== END 2025-03-20 19:36 | disposition home or self-care (01) ==
LOC: EC 15:08
DX: S52.501A Unspecified fracture of the lower end of right radius, initial encounter for closed fracture (principal); Z88.0 Allergy status to penicillin; Z88.5 Allergy status to narcotic agent; X58.XXXA Exposure to other specified factors, initial encounter
CPT/HCPCS: 99284

== ENCOUNTER 2025-06-21 17:02 | Emergency (ER) | payer MEDICARE, BC ==
--- NOTE | 2025-06-21 17:19 | ED ---
Fall HPI - General Chief Complaint: Fall Stated Complaint: AMS Time Seen by Provider: 06/21/25 17:06 Source: EMS Mode of arrival: EMS - History of Present Illness Initial Comments: This patient is an 89-year-old woman who arrives by ambulance to have evaluation after she had a fall. Patient was reportedly attempting to go and visit another resident at her facility when she tripped and fell forward landing on outstretched arms and chin area. No LOC reported. The patient is complaining of pain mainly to the facial and mandibular areas. She does have a little bit of neck pain and some mild headache. Patient denies chest, abdomen, other extremity pains. The patient's grandson, with power of employment attorney, states that she had fallen and fractured this right wrist 4 months ago. She had been casted and then was wearing a splint up until 2 weeks ago. MD Complaint: fall Onset/Timin -: hour(s) Fall From: standing When Fall Occurred: 1 hour [employer]PERATOR [employer] Fall Witnessed: yes, by living facility staff Place Fall Occurred: correction/SNF Loss of Consciousness: unsure Prolonged Down Time?: no Symptoms Prior to Fall: none Location: head, neck Location - Extremities: Right: Forearm Severity: moderate Quality: burning Context: tripped/slipped - Related Data Home Medications Medication Instructions Recorded Confirmed Latanoprost [Latanoprost 0.005%] 1 drop BOTH EYES HS 12/20/22 05/20/23 Levothyroxine Sodium [Synthroid] 50 mcg PO DAILY 12/20/22 05/20/23 Previous Rx's Medication Instructions Recorded Nitrofurantoin Monohyd/M-Cryst 100 mg PO Q12HR #14 cap 05/20/23 [Macrobid] Allergies Allergy/AdvReac Type Severity Reaction Status Date / Time oxycodone HCl Allergy Itching Verified 06/21/25 17:06 [From OxyContin] Penicillins Allergy Unknown Verified 06/21/25 17:06 Review of Systems ROS Statement: Those systems with pertinent positive or pertinent negative responses have been documented in the HPI. ROS Other: All systems not noted in ROS Statement are negative. Constitutional: Denies: fever, weakness Eyes: Denies: eye pain, vision change ENT: Denies: epistaxis Respiratory: Denies: cough, dyspnea Cardiovascular: Denies: chest pain, syncope Gastrointestinal: Denies: abdominal pain, vomiting Genitourinary: Denies: dysuria, hematuria Musculoskeletal: Reports: as per HPI, arthralgia Skin: Denies: rash Neurological: Reports: headache. 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 Absent: scleral icterus, conjunctival injection, nystagmus Neck exam: Present: normal inspection, full ROM. Absent: tenderness Respiratory exam: Present: normal lung sounds bilaterally. Absent: respiratory distress, wheezes, rales, rhonchi, stridor, chest wall tenderness, accessory muscle use Cardiovascular Exam: Present: regular rate, normal rhythm, normal heart sounds. Absent: systolic murmur, diastolic murmur, rubs, gallop GI/Abdominal exam: Present: soft. Absent: distended, tenderness, guarding, rebound, rigid, mass Extremities exam: Present: tenderness, normal capillary refill, other (The patie nt has swelling and tenderness at right wrist, no other evident joint pains and range of motion otherwise normal). Absent: normal inspection, full ROM, pedal edema, calf tenderness Back exam: Present: normal inspection. Absent: CVA tenderness (R), CVA tenderness (L), vertebral tenderness Neurological exam: Present: alert, CN II-XII intact. Absent: motor sensory deficit Skin exam: Present: warm, dry, normal color, other (Small laceration anterior neck/chin). Absent: rash Course Vital Signs 06/21/25 06/21/25 06/21/25 17:04 18:07 22:45 Temperature 97.7 F 97.6 F 98 F Pulse Rate 85 82 80 Respiratory 16 18 18 Rate Blood Pressure 187/85 123/95 129/107 O2 Sat by Pulse 97 99 92 L Oximetry - Reevaluation(s) Reevaluation #1: 06/21/25 20:45 Case was discussed with Dr. Durham, covering [facility] service ritchie who states that he does not manage these injuries. In light of that discussed with patient's family and they did request [facility]. I discussed with Dr. Baker, Covering the trauma service there and patient will be transferred. The patient does have right wrist fracture as well but suspect that this is chronic. Procedures - Laceration Laceration #1 Consent Obtained: verbal consent Indication: laceration Site: face Size (cm): 3 Description: linear Depth: simple, single layer Anesthetic Used: lidocaine 1% Anesthesia Technique: local infiltration Type of Sutures: nylon Size of Sutures: 5-0 Number of Sutures: 4 Technique: simple, interrupted Patient Tolerated Procedure: well, no complications Medical Decision Making - Medical Decision Making Was pt. sent in by a medical professional or institution (, PA, INSECTICIDE EXPERT, urgent care, hospital, or correction...) When possible be specific @ -[No] Did you speak to anyone other than the patient for history (EMS, parent, family, police, friend...)? What history was obtained from this source @ -[No] Did you review nursing and triage notes (agree or disagree)? Why? @ -[I reviewed and agree with nursing and triage notes] Were old charts reviewed (outside hosp., previous admission, EMS record, old EKG, old radiological studies, urgent care reports/EKG's, correction records)? Report findings @ -[No old charts were reviewed] Differential Diagnosis (chest pain, altered mental status, abdominal pain women, abdominal pain men, vaginal bleeding, weakness, fever, dyspnea, syncope, headache, dizziness, GI bleed, back pain, seizure, CVA, palpatations, mental health, musculoskeletal)? @ -[Differential Musculoskeletal Muscular strain, contusion, ligament sprain, fracture, arthritis, septic ar thritis, bursitis, cellulitis, muscle spasm, nerve compression, DVT, arterial occlusion, herpes zoster, electrolyte abnormality, tumor.... This is not meant to be in all inclusive list EKG interpreted by me (3pts min.). @ -[I interpreted as above] X-rays interpreted by me (1pt min.). @ -[I interpreted as above none done] CT interpreted by me (1pt min.). @ -[None done] U/S interpreted by me (1pt. min.). @ -[None done] What testing was considered but not performed or refused? (CT, X-rays, U/S, labs)? Why? @ -[None] What meds were considered but not given or refused? Why? @ -[None] Did you discuss the management of the patient with other professionals (professionals i.e. Dr., PA, INSECTICIDE EXPERT, lab, RT, psych nurse, professor of social work, fiberglass grinder, teacher, correctional security officer, porter sample case)? Give summary @ -[No] Was smoking cessation discussed for >3mins.? @ -[No] Was critical care preformed (if so, how long)? @ -[No] Were there social determinants of health that impacted care today? How? (Homelessness, low income, unemployed, alcoholism, drug addiction, transportation, low edu. Level, literacy, decrease access to med. care, care home, rehab)? @ -[No] Was there de-escalation of care discussed even if they declined (Discuss DNR or withdrawal of care, Hospice)? DNR status @ -[No] What co-morbidities impacted this encounter? (DM, HTN, Smoking, COPD, CAD, Cancer, CVA, ARF, Chemo, Hep., AIDS, mental health diagnosis, sleep apnea, morbid obesity)? @ -[None] Was patient admitted / discharged? Hospital course, mention meds given and route, prescriptions, significant lab abnormalities, going to OR and other pertinent info. @ -[Patient is an 89-year-old woman here after ground-level fall. The patient found to have bilateral mandibular fracture involving the intra-articular surfaces. Discussed the case with Dr. Durham who states that he is not manage those injuries here. He recommended transfer to have patient seen at [facility]. This was discussed with patient and family and they are agreeable. The patient also found to have wrist fracture but this does seem chronic as the patient had similar fall months ago and did not have surgical repair at that time. Case discussed with the transfer team and the patient transferred to [facility] Undiagnosed new problem with uncertain prognosis? @ -[No] Drug Therapy requiring intensive monitoring for toxicity (Heparin, Nitro, Insulin, Cardizem)? @ -[No] Were any procedures done? @ -[No] Diagnosis/symptom? @ -[Acute fall injury Bilateral mandibular fracture Chin laceration Right wrist fracture, suspect chronic Acute, or Chronic, or Acute on Chronic? @ -[Acute Uncomplicated (without systemic symptoms) or Complicated (systemic symptoms)? @ -[Uncomplicated Side effects of treatment? @ -[No] Exacerbation, Progression, or Severe Exacerbation? @ -[No] Poses a threat to life or bodily function? How? (Chest pain, [place], [place], pneumonia, PE, COPD, DKA, ARF, appy, cholecystitis, CVA, Diverticulitis, Homicidal, Suicidal, threat to staff... and all critical care pts) @ -[yes All treatments are based on ideal body weight as in ED triage - Lab Data Result diagrams: 06/21/25 17:31 06/21/25 17:31 Lab Results 06/21/25 06/21/25 Range/Units 17:31 17:31 WBC 8.85 (4.50-10.00) 10*3/uL RBC 4.66 (4.10-5.20) 10*6/uL Hgb 14.3 (12.0-15.0) g/dL Hct 43.3 (37.2-46.3) % MCV 92.9 (80.0-97.0) fL MCH 30.7 (27.0-32.0) pg MCHC 33.0 (32.0-37.0) g/dL Plt Count 199 (140-440) 10*3/uL MPV 8.0 L (9.5-12.2) fL Immature Gran % (Auto) 0.5 % Neutrophils % 66.4 % Lymphocytes % 23.7 % Monocytes % 6.9 % Eosinophils % 1.6 % Basophils % 0.9 % Immature Gran # 0.04 (0.00-0.04) 10*3/uL Neutrophils # 5.88 (1.80-7.70) 10*3/uL Lymphocytes # 2.10 (0.90-5.00) 10*3/uL Monocytes # 0.61 (0.20-1.00) 10*3/uL Eosinophils # 0.14 (0.04-0.35) 10*3/uL Basophils # 0.08 (0.00-0.10) 10*3/uL Sodium 137 (137-145) mmol/L Potassium 5.0 (3.5-5.1) mmol/L Chloride 104 (98-107) mmol/L Carbon Dioxide 26 (22-30) mmol/L Anion Gap 7 mmol/L BUN 28 H (7-17) mg/dL Creatinine 0.74 (0.52-1.04) mg/dL Est GFR (CKD-EPI)AfAm 84 (>60 ml/min/1.73 sqM) Est GFR (CKD-EPI)NonAf 73 (>60 ml/min/1.73 sqM) Glucose 89 (74-99) mg/dL Calcium 8.9 (8.4-10.2) mg/dL Total Bilirubin 0.5 (0.2-1.3) mg/dL AST 25 (14-36) U/L ALT 15 (4-34) U/L Alkaline Phosphatase 69 (38-126) U/L Total Protein 6.2 L (6.3-8.2) g/dL Albumin 3.8 (3.5-5.0) g/dL Disposition Clinical Impression: Fall, Bilateral fracture of mandible, Laceration of chin, Wrist fracture, right Disposition: OTHER INSTITUTION NOT DEFINED Condition: Fair Is patient prescribed a controlled substance at d/c from ED?: No Referrals: Olga Cruz [Primary Care Provider] - 1-2 days - Out of Hospital Transfer - Req. Specs Out of Hospital Transfer - Requested Specifics: Other Emergency Center
[2025-06-21] MEDS ORDERED: METOPROLOL TARTRATE 25 MG TAB PO STA (17:31)
[2025-06-21 17:40] LABS: Basophils # (A) 0.08 10*3/uL (0.00-0.10); Basophils % (A) 0.9 %; Eosinophils # (A) 0.14 10*3/uL (0.04-0.35); Eosinophils % (A) 1.6 %; HCT 43.3 % (37.2-46.3); HGB 14.3 g/dL (12.0-15.0); Lymphocytes # (A) 2.10 10*3/uL (0.90-5.00); Lymphocytes % (A) 23.7 %; MCH 30.7 pg (27.0-32.0); MCHC 33.0 g/dL (32.0-37.0); MCV 92.9 fL (80.0-97.0); Monocytes # (A) 0.61 10*3/uL (0.20-1.00); Monocytes % (A) 6.9 %; Neutrophils # (A) 5.88 10*3/uL (1.80-7.70); Neutrophils % (A) 66.4 %; Platelet Count 199 10*3/uL (140-440); RBC 4.66 10*6/uL (4.10-5.20); RDW 13.1 % (11.5-14.5); WBC 8.85 10*3/uL (4.50-10.00)
[2025-06-21] MEDS: ACETAMINOPHEN TAB 325 MG TAB PO STA (17:52)
[2025-06-21 17:54] LABS: ALT 15 U/L (4-34); AST 25 U/L (14-36); African American GFR (CKD) 84 (>60 ml/min/1.73 sqM); Albumin 3.8 g/dL (3.5-5.0); Alkaline Phosphatase 69 U/L (38-126); Anion Gap 7 mmol/L; Blood Urea Nitrogen 28 mg/dL (7-17); Calcium 8.9 mg/dL (8.4-10.2); Carbon Dioxide 26 mmol/L (22-30); Chloride 104 mmol/L (98-107); Glucose 89 mg/dL (74-99); Non-African American GFR(CKD) 73 (>60 ml/min/1.73 sqM); Potassium 5.0 mmol/L (3.5-5.1); Sodium 137 mmol/L (137-145); Total Protein 6.2 g/dL (6.3-8.2)
[2025-06-21] MEDS: DIPH,PERTUS(ACELL)TETVAC-LF 0.5 ML VIAL IM ONE (17:55)
[2025-06-21 18:09] VITALS: RESP 18
--- NOTE | 2025-06-21 18:32 | CT ---
EXAMINATION TYPE: CT brain cspine wo con, CT facial bones wo con DATE OF EXAM: 06/21/2025 6:19 PM COMPARISON: None. CLINICAL INDICATION: Female, 89 years old with history of fall injury; fall injury, pain TECHNIQUE: Brain: Multiple axial CT images of the brain were obtained without IV contrast. Cspine: Axial CT images from the skull base to the inferior aspect of T2 we obtained without intraven ous contrast. Coronal and sagittal reformatted images were also reviewed. Facial: Axial imaging of the facial structures with sagittal and coronal reformats. CT DLP: 1046.7 mGycm, Automated exposure control for dose reduction was used. FINDINGS: Brain: Extra-axial spaces: No abnormal extra-axial fluid collections. Ventricular system: Dilatation in proportion to cerebral atrophy. Cerebral parenchyma: Cerebral atrophy. No acute intraparenchymal hemorrhage or mass effect. The woodward -white junction is well differentiated. Scattered hypoattenuating areas are seen within the white mat ter. Cerebellum: Unremarkable. Mass effect: No evidence of midline shift. Intracranial vasculature: Atherosclerotic calcifications of the intracranial vessels. Soft tissues: Normal. Calvarium/osseous structures: No depressed skull fracture. Acute fractures through the bilateral cond yloid processes of the mandible. There is displacement up to 4 mm on the right and 3 mm on the left. Paranasal sinuses and mastoid air cells: Clear. Visualized orbits: Bilateral aphakia Cervical spine: Fracture: No spinal fractures, Acute fractures through the bilateral condyloid processes of the saul ble. There is displacement up to 4 mm on the right and 3 mm on the left. Osseous structures: Multilevel degenerative disc disease changes with endplate spurring and disc oste ophyte complex's. Vertebral alignment: Within normal limits. Spinal canal/Neural Foramina: No evidence of significant spinal canal narrowing. No evidence for sign ificant neural foraminal stenosis. Neck soft tissues: Prevertebral soft tissues are within normal limits. Other: The airway is patent. The lung apices are clear. Facial: There is no evidence of fracture, subluxation, dislocation, or significant soft tissue swelli ng. The orbital contents are unremarkable.The temporal-mandibular joints appear symmetric. The visual ized portion of the paranasal sinuses appear clear. Acute fractures through the bilateral condyloid processes of the mandible. There is displacement up to 4 mm on the right and 3 mm on the left. IMPRESSION: 1. Bilateral intra-articular on the condyloid process of the mandible fractures with mild displaceme nt and intra-articular extension. 2. No acute intracranial process. 3. No evidence of cervical spine fracture. 4. Mild multilevel degenerative disc disease. [facility], , 06/21/2025 6:30 PM
--- NOTE | 2025-06-21 19:02 | XR ---
EXAMINATION TYPE: XR chest 1V portable DATE OF EXAM: 06/21/2025 6:48 PM COMPARISON: Chest radiographs from 06/22/2012. CLINICAL INDICATION: Female, 89 years old with history of fall injury; [facility] TECHNIQUE: XR chest 1V portable Frontal view of the chest. FINDINGS: Lungs/Pleura: There is no evidence of pleural effusion, focal consolidation, or pneumothorax. Pulmonary vascularity: Unremarkable. Heart/mediastinum: Cardiomediastinal silhouette is unremarkable. Musculoskeletal: No acute osseous pathology. Fixation hardware in the right proximal humerus. IMPRESSION: No acute cardiopulmonary disease/process. [facility], , 06/21/2025 6:59 PM
--- NOTE | 2025-06-21 19:04 | XR ---
EXAMINATION TYPE: XR wrist complete RT DATE OF EXAM: 06/21/2025 6:48 PM COMPARISON: None CLINICAL INDICATION: Female, 89 years old with history of fall injury; PHH, pain TECHNIQUE: XR wrist complete RT; examined in the Frontal, navicular, lateral, and oblique. FINDINGS/impression: Distal radius fracture with shortening. Unclear acuity there is some of the bony callus formation correlate with history. No other fractures visualized. Multifocal degeneration martin ges of the bones. Consider further evaluation with CT imaging. [facility], , 06/21/2025 7:02 PM
[2025-06-21] MEDS ORDERED: LIDOCAINE 1% INJ 10MG/ML (10 ML MDV) SQ STA (20:02)
[2025-06-21] MEDS: LIDOCAINE 1% INJ 10MG/ML (20 ML MDV) SQ STA (20:22)
[2025-06-21] MEDS: MORPHINE SULFATE 2 MG/ML SYRINGE IV STA (22:38)
[2025-06-21 22:50] VITALS: BP 129/107; PULSE 80; TEMP 98
== END 2025-06-21 23:00 | disposition other institution (70) ==
LOC: EC 17:02
DX: S62.102A Fracture of unspecified carpal bone, left wrist, initial encounter for closed fracture (principal); S52.501A Unspecified fracture of the lower end of right radius, initial encounter for closed fracture; S01.81XA Laceration without foreign body of other part of head, initial encounter; Z88.0 Allergy status to penicillin; Z88.5 Allergy status to narcotic agent; Z23 Encounter for immunization; W01.0XXA Fall on same level from slipping, tripping and stumbling without subsequent striking against object, initial encounter
CPT/HCPCS: 36415; 80053; 85025; 73110; 71045; 72125; 70486; 70450; 90715; 99285; 90471; 96374; 12011; J2003; J2270